=== PATIENT | male | born 1970 | race Caucasian/White ===

== ENCOUNTER → 2018-07-13 | Outpatient (CLI) | payer BC ==
--- NOTE | 2018-07-13 09:27 | XR ---
EXAMINATION TYPE: XR elbow limited RT DATE OF EXAM: 07/13/2018 CLINICAL HISTORY: pain TECHNIQUE: Frontal, lateral images of the right elbow are obtained. COMPARISON: None. FINDINGS: There is no acute fracture/dislocation evident of the elbow. Severe degenerative joint spa ce narrowing with spur formation. The overlying soft tissue appears unremarkable. IMPRESSION: There is no acute fracture or dislocation of the elbow. ICD 10 NO FRACTURE, INITIAL EVALUATION
== END ==
LOC: RADXRMAIN 09:09
PROVIDERS: ATTEND Orthopaedic Surgery
DX: M25.521 Pain in right elbow (principal)

== ENCOUNTER → 2018-08-18 | Outpatient (CLI) | payer OTHER ==
--- NOTE | 2018-08-19 15:13 | MR ---
EXAMINATION TYPE: MR elbow RT wo con DATE OF EXAM: 08/18/2018 COMPARISON: Radiographs of the right elbow dated 07/13/2018 HISTORY: Pain in right elbow / Loose body in elbow TECHNIQUE: Multiplanar, multisequence images of the right elbow were acquired without contrast. FINDINGS: As seen on the radiographs of the right elbow dated 07/13/2018 there is severe arthropathy o f the right elbow with protuberant osteophytes projecting from the distal humerus, proximal radial he ad, and proximal ulna. There is no evidence of bone marrow edema. Subchondral cysts are seen of the h umeral condyles and radial head and to a lesser degree of the coronoid process and dorsal ulna. There is a small joint effusion of the right elbow. There is high signal at both the lateral and medial epicondyles at the insertion of the common extens or and flexor tendons. The ulnar collateral ligament has a central perforation, possibly degenerative partial tear. The radial collateral ligament also demonstrates a small proximal perforation and high signal proximally. The biceps insertional tendon fibers are unremarkable. The ulnar nerve is unremar kable. IMPRESSION: 1. Extensive right elbow arthropathy with large protuberant osteophytes and [id number] articulation of the joint spaces with subchondral cyst formation and small associated joint effusion. 2. Partial tears of both the ulnar collateral ligament and radial collateral ligament. 3. Findings suggesting both lateral and medial epicondylitis, mild in degree.
== END | disposition home or self-care (01) ==
LOC: RADMRIMAIN 12:22
PROVIDERS: ATTEND Orthopaedic Surgery
DX: S53.441A Ulnar collateral ligament sprain of right elbow, initial encounter (principal); S53.431A Radial collateral ligament sprain of right elbow, initial encounter; M19.021 Primary osteoarthritis, right elbow; M25.821 Other specified joint disorders, right elbow

== ENCOUNTER → 2020-08-13 | Outpatient (CLI) | payer BC ==
--- NOTE | 2020-08-13 17:18 | MR ---
EXAMINATION TYPE: MR knee LT wo con DATE OF EXAM: 08/13/2020 COMPARISON: Outside radiograph 07/16/2020 HISTORY: 50-year-old male M25.562, left knee pain. TECHNIQUE: Multiplanar, multisequence imaging of the left knee is performed without IV contrast. FINDINGS: ACL and PCL are intact. Mild edematous change on either side of the intact MCL fibers. Heterogeneity and thickening of the proximal LCL proper. There is some fluid along the popliteus tend on sheath along with a 7 mm loose body but the LCL complex is otherwise intact There is an oblique tear involving the posterior horn of the medial meniscus. A large through thickne ss radial tear involves the body of the medial meniscus. The meniscus is extruded. Severe degenerative change with full-thickness cartilage loss along the weightbearing and peripheral aspect of the medial compartment. Marginal spurring and degenerative subchondral signal changes are p resent. Lateral meniscus is intact. Overall lateral compartment articular cartilage volume is maintained. Severe moderate to full thickness cartilage loss along the medial patellar facet with underlying dege nerative subchondral signal changes and marginal spurring. Extensor mechanism is intact. There is a moderate knee joint effusion. A complex small leaking Barahona's cyst present measuring 2.6 cm craniocaudal by 1.8 cm AP by 8 mm wide. Mild anterior subcutaneous soft tissue swelling. Normal popliteal artery anatomy in muscle bulk. No suspicious bone marrow placement. IMPRESSION: 1. Severe medial compartmental osteoarthrosis with a torn and extruded medial meniscus. The tear incl udes a large through thickness component of the meniscal body. 2. Severe degenerative change with moderate to full thickness cartilage loss along the medial patella r facet. 3. Grade 1 MCL sprain. Additional grade 1 sprain of the LCL proper. 4. Moderate joint effusion. Fluid extends within the popliteus tendon sheath along with a 7 mm loose body. 5. Small 2.6 cm leaking Barahona's cyst
== END | disposition home or self-care (01) ==
LOC: RADMRIMAIN 13:14
PROVIDERS: ATTEND Orthopaedic Surgery
DX: S83.242A Other tear of medial meniscus, current injury, left knee, initial encounter (principal); S83.412A Sprain of medial collateral ligament of left knee, initial encounter; S83.422A Sprain of lateral collateral ligament of left knee, initial encounter; M17.12 Unilateral primary osteoarthritis, left knee

== ENCOUNTER → 2020-09-06 | Outpatient (CLI) | payer BC ==
[2020-09-06 14:16] LABS: Basophils # (A) 0.1 k/uL (0-0.2); Basophils % (A) 1 %; Eosinophils # (A) 0.3 k/uL (0-0.7); Eosinophils % (A) 5 %; HCT 48.8 % (39.0-53.0); HGB 16.2 gm/dL (13.0-17.5); Lymphocytes # (A) 1.6 k/uL (1.0-4.8); Lymphocytes % (A) 33 %; MCH 30.7 pg (25.0-35.0); MCHC 33.2 g/dL (31.0-37.0); MCV 92.4 fL (80.0-100.0); Mean Platelet Volume 7.2; Monocytes # (A) 0.4 k/uL (0-1.0); Monocytes % (A) 8 %; Neutrophils # (A) 2.5 k/uL (1.3-7.7); Neutrophils % (A) 51 %; Platelet Count 202 k/uL (150-450); RBC 5.28 m/uL (4.30-5.90); RDW 12.6 % (11.5-15.5); WBC 4.9 k/uL (3.8-10.6)
[2020-09-06 14:29] LABS: Potassium 4.8 mmol/L (3.5-5.1)
== END | disposition home or self-care (01) ==
LOC: LABPAT 11:48
PROVIDERS: ATTEND Orthopaedic Surgery
DX: M23.92 Unspecified internal derangement of left knee (principal)
CPT/HCPCS: 80051; 85025; 93005

== ENCOUNTER 2020-09-09 10:39 | Day surgery (SDC) | payer BC ==
[2020-09-05 09:54] VITALS: BMI 37.5
--- NOTE | 2020-09-08 16:51 | HP ---
HISTORY AND PHYSICAL REASON FOR ADMISSION: Surgery 09/09/2020 HISTORY OF PRESENT ILLNESS: Howard Martínez is a 50-year-old gentleman seen with progressive left knee pain. We discussed options for treatment. He elected to proceed with left knee arthroscopy. Consent was obtained. PAST MEDICAL HISTORY: Hypertension, asthma. PAST SURGICAL HISTORY: Right hand/forearm surgery. MEDICATIONS: Cozaar. ALLERGIES: None. SOCIAL HISTORY: Denies current tobacco use. PHYSICAL EXAMINATION: Evaluation of the left knee: His range of motion is 0-120 degrees. He has a mild effusion present. Tender along the medial joint line with positive medial Rio's. Ligaments are stable. Hip rotation is without pain. His distal neurovascular exam is intact. RADIOGRAPHS: Revealed osteoarthritic changes. MRI left knee revealed meniscal tear, osteoarthritis and intra-articular effusion. IMPRESSION: 1. Internal derangement left knee with medial meniscal tear. 2. Left knee osteoarthritis. 3. Hypertension. 4. Asthma. PLAN: Arthroscopy left knee with partial meniscectomy and debridement. Surgery scheduled for 09/09/2020. MMODL / IJN: [id number] /
[2020-09-09] MEDS ORDERED: ONDANSETRON 4 MG/2 ML VIAL IVP ONE (10:54)
[2020-09-09] MEDS ORDERED: MIDAZOLAM 2 MG/2 ML VIAL IV PRN (10:54)
[2020-09-09] MEDS ORDERED: LACTATED RINGERS 1,000 ML IV SCH (10:54)
[2020-09-09] MEDS ORDERED: fentaNYL (PF) 50 MCG/ML 2 ML AMP IVP PRN (10:54)
[2020-09-09] MEDS ORDERED: DEXAMETHASONE SOD PHOSPHATE 4 MG/ML 1 ML VIAL IV ONE (10:54)
[2020-09-09] MEDS ORDERED: LIDOCAINE 1% (10MG/ML) FOR IV START INTRADERMA PRN (10:54)
[2020-09-09 11:02] VITALS: RESP 16
[2020-09-09] MEDS ORDERED: HYDROmorphone (PF) 1 MG/ML ONE (11:15)
[2020-09-09] MEDS ORDERED: PROPOFOL 10 MG/ML 20 ML VIAL IV ONE (11:15)
[2020-09-09] MEDS ORDERED: MIDAZOLAM 2 MG/2 ML VIAL ONE (11:15)
[2020-09-09] MEDS ORDERED: fentaNYL (PF) 50 MCG/ML 2 ML AMP ONE (11:15)
[2020-09-09] MEDS ORDERED: LIDOCAINE 1% INJ 10MG/ML (20 ML MDV) ONE (11:15)
[2020-09-09] MEDS ORDERED: KETOROLAC 15 MG/ML 1 ML VIAL ONE (11:15)
[2020-09-09] MEDS ORDERED: BUPIVACAINE (PF) 0.25% 30 ML VIAL INTRAARTIC ONE (11:38)
[2020-09-09 12:25] VITALS: TEMP 97
--- NOTE | 2020-09-09 12:30 | P.OP ---
Date of Procedure: 09/09/20 Preoperative Diagnosis: Internal derangement left knee Postoperative Diagnosis: 1. Tear medial meniscus left knee 2. Grade 4 chondromalacia medial femoral condyle left knee 3. Reactive synovitis medial, lateral and suprapatellar compartments left knee Procedure(s) Performed: 1. Arthroscopic partial medial meniscectomy left knee 2. Arthroscopic chondroplasty medial femoral condyle left knee 3. Arthroscopic microfracture medial femoral condyle left knee 4. Arthroscopic partial synovectomy medial, lateral and suprapatellar compartments left knee Anesthesia: LAM, local Surgeon: Keith Garay Estimated Blood Loss (ml): 10 Pathology: none sent Condition: stable Disposition: PACU Indications for Procedure: 50-year-old patient seen with progressive left knee pain. After treatment options were discussed with him, he elected to proceed with arthroscopy. Operative Findings: See description of procedure Description of Procedure: Patient was taken to the operative suite. Patient underwent a general anesthetic by the department of anesthesia. Patient was given preoperative antibiotics. The left lower extremity was placed in a well-padded arthroscopic leg thompson. The left leg was prepped and draped in the normal sterile orthopedic fashion. A lateral parapatellar and suprapatellar incision was made. Trochars were inserted. Arthroscopy was initiated. Suprapatellar pouch revealed diffuse thick reactive synovitis. The patellofemoral joint appeared to articulate congruently. There with grade 1 chondromalacia of the patella and grade 2 chondromalacia of the femoral sulcus. The scope was guided into the medial gutter. No loose bodies or plica were identified. The scope was then guided into the medial compartment. A medial parapatellar incision was made. Trocar inserted followed by probe. There was a complex tear of the medial meniscus involving the posterior horn and midbody. There were grade 4 chondromalacia changes medial femoral condyle and tibial plateau with large areas of exposed bone. There was thick reactive synovitis anteriorly. I performed a partial medial meniscectomy getting down to stable meniscal tissue. I performed a chondroplasty of the medial femoral condyle and the periphery as well as performing a partial synovectomy decompressing reactive synovitis anteriorly. Residual meniscus was probed and found to be stable. There was good decompression of the synovitis. I again noted those areas of grade 4 chondromalacia. I performed a microfracture to medial femoral condyle penetrating the bone with resultant bleeding at the microfracture site. Scope and probe were then guided into the intercondylar notch. Cruciates were identified, probed and found to be stable. The scope and probe were then guided into lateral compartment. Meniscal meniscus was probed and found be stable. There were some grade 1 chondromalacia changes lateral compartment. There was thick reactive synovitis anteriorly. I performed a partial synovectomy decompressing reactive synovitis. I removed the shaver. There was good decompression of the synovitis. The scope was in guided back into the suprapatellar compartment. I introduced a motorized shaver into the suprapat ellar compartment. I debrided some piecemeal fragments of meniscus I encountered. I performed a partial synovectomy decompressing thick reactive synovitis. Shaver was removed. There was good decompression of synovitis. I now took one more look on the entire knee, no residual debris. Instruments were now removed from the joint. The joint was infiltrated with .25% Marcaine. Steri-Strips were applied to the portal sites. Sterile dressings were applied. The patient was placed into a NICHOLAS hose. No tourniquet was utilized. The patient was awakened, transferred to a bed and taken to recovery stable satisfactory condition.
[2020-09-09] MEDS: HYDROmorphone 0.5 MG/0.5 ML SYRINGE IVP PRN ×2 (12:41→12:51)
[2020-09-09] MEDS ORDERED: LACTATED RINGERS 1,000 ML IV ONE (12:43)
[2020-09-09] MEDS ORDERED: HYDROcodone/APAP 5-325MG 1 EACH TAB PO ONE (13:24)
[2020-09-09 13:25] VITALS: BP 137/87; PULSE 67
[2020-09-09] MEDS ORDERED: HYDROcodone/APAP 5-325MG 1 EACH TAB ONE (13:26)
== END 2020-09-09 14:26 | disposition home or self-care (01) ==
LOC: OR 10:39
PROVIDERS: ATTEND Orthopaedic Surgery
DX: M23.222 Derangement of posterior horn of medial meniscus due to old tear or injury, left knee (principal); M94.262 Chondromalacia, left knee; M17.12 Unilateral primary osteoarthritis, left knee; M65.862 Other synovitis and tenosynovitis, left lower leg; I10 Essential (primary) hypertension; J45.909 Unspecified asthma, uncomplicated; G47.33 Obstructive sleep apnea (adult) (pediatric); Z79.899 Other long term (current) drug therapy
CPT/HCPCS: 29881; 29879; J2250; J1100; J0690; J2405; J2001; J3010; J1170 ×2; J1885; J2704

== ENCOUNTER → 2023-12-15 | Outpatient (CLI) | payer BC ==
[2023-12-15 16:15] LABS: Basophils # (A) 0.05 X 10*3/uL (0.00-0.10); Basophils % (A) 0.9 %; Eosinophils # (A) 0.38 X 10*3/uL (0.04-0.35); Eosinophils % (A) 6.8 %; HCT 40.6 % (39.6-50.0); HGB 12.9 g/dL (13.0-17.0); Lymphocytes # (A) 1.48 X 10*3/uL (0.90-5.00); Lymphocytes % (A) 26.5 %; MCH 31.2 pg (27.0-32.0); MCHC 31.8 g/dL (32.0-37.0); MCV 98.1 FL (80.0-97.0); Mean Platelet Volume 9.9 FL (9.5-12.2); Monocytes # (A) 0.38 X 10*3/uL (0.20-1.00); Monocytes % (A) 6.8 %; NRBC Per 100 WBC 0 X 10*3/uL (0.00-0.01); Neutrophils # (A) 3.28 X 10*3/uL (1.80-7.70); Neutrophils % (A) 58.6 %; Platelet Count 293 X 10*3/uL (140-440); RBC 4.14 X 10*6/uL (4.40-5.60); RDW 12.6 % (11.5-14.5); WBC 5.59 X 10*3/uL (4.50-10.00)
[2023-12-15 16:31] LABS: BUN/Creat Ratio 17.89 Ratio (12.00-20.00); Blood Urea Nitrogen 16.1 mg/dL (9.0-27.0); Calcium 9.2 mg/dL (8.7-10.3); Carbon Dioxide 21.9 mmol/L (21.6-31.8); Chloride 101 mmol/L (96-109); Glucose 108 mg/dL (70-110); Potassium 4.6 mmol/L (3.5-5.5); Sodium 135 mmol/L (135-145)
== END | disposition home or self-care (01) ==
LOC: LABPAT 10:33
PROVIDERS: ATTEND Orthopaedic Surgery
DX: Z01.812 Encounter for preprocedural laboratory examination (principal); Z22.322 Carrier or suspected carrier of Methicillin resistant Staphylococcus aureus; M17.12 Unilateral primary osteoarthritis, left knee
CPT/HCPCS: 80048; 85025; 87070

== ENCOUNTER 2024-01-06 09:46 | Day surgery (SDC) | payer BC ==
--- NOTE | 2024-01-05 21:00 | HP ---
HISTORY AND PHYSICAL DATE OF SURGERY: 01/06/2024. HISTORY OF PRESENT ILLNESS: Howard Martínze is a 53-year-old gentleman seen with symptomatic left knee osteoarthritis. Options for treatment were discussed with him. He elected to proceed with left total knee arthroplasty. Consent regarding the procedure was obtained. Cardiac clearance was provided. Primary care physician is Dr. Noe. PAST MEDICAL HISTORY: Cardiovascular disease, hypertension, hyperlipidemia. PAST SURGICAL HISTORY: Cardiac surgery, hand surgery. DAILY MEDICATIONS: 1. Coreg. 2. Cozaar. 3. Crestor. 4. Lasix. 5. Plavix. 6. Tylenol. ALLERGIES: None. SOCIAL HISTORY: Denies tobacco use. PHYSICAL EVALUATION OF THE LEFT KNEE: His range of motion is negative 2 to 125 degrees. He has some mild effusion. Tenderness, medial joint line. Crepitance along the medial patellofemoral compartments with range of motion. Pain with patellofemoral compression. Ligaments stable. Hip rotation without pain. Distal neurovascular exam is intact. IMAGING STUDIES: Radiographs of the left knee reveal severe osteoarthritic changes. IMPRESSION: 1. Left knee osteoarthritis. 2. Hypertension. 3. Hyperlipidemia. 4. Cardiovascular disease. PLAN: Left total knee arthroplasty. MMODL / IJN: [id number] /
[~2024-01-06 09:46] MED LIST: HYDROmorphone 0.5 MG/0.5 ML SYRINGE IVP PRN; LIDOCAINE 1% (10MG/ML) FOR IV START INTRADERMA PRN; TRANEXAMIC 1,000 MG/100ML-NACL 1,000 MG in SALINE 1 100ML.BAG IVPB PRN; fentaNYL (PF) 50 MCG/ML 2 ML AMP IVP PRN
[2024-01-06] MEDS: ACETAMINOPHEN TAB 500 MG TAB PO PRN (10:23)
[2024-01-06] MEDS: LACTATED RINGERS 1,000 ML IV SCH ×2 (10:23→14:59)
[2024-01-06] MEDS: ONDANSETRON 4 MG/2 ML VIAL IVP ONE (10:24)
[2024-01-06] MEDS: DEXAMETHASONE SOD PHOSPHATE 4 MG/ML 1 ML VIAL IV ONE (10:24)
[2024-01-06] MEDS: MELOXICAM 7.5 MG TAB PO PRN (10:24)
[2024-01-06] MEDS: IV FLUID CONTINUATION 1,000 ML IV ONE (10:26)
[2024-01-06] MEDS: MIDAZOLAM 2 MG/2 ML VIAL IV PRN (10:28)
[2024-01-06 10:51] LABS: INR 0.9 (<1.2); Prothrombin Time 10.5 sec (10.0-12.5)
--- NOTE | 2024-01-06 11:14 | P.ANPRN ---
Procedure Note - Anesthesia - Nerve Block Performed Left iPack Single Time Out Performed: Yes Date of Procedure: 01/06/24 Procedure Start Time: 10:28 Procedure Stop Time: 10:33 Location of Patient: PreOp Indication: Acute Post-Operative Pain, Analgesia, Requested by Surgeon Sedation Type: Sedate with meaningful contact maintained Preparation: Sterile Prep Position: Right Lateral Needle Types: Pajunk Needle Gauge: 21 Ultrasound used to visualize needle placement: Yes Ultrasound used to observe medication spread: Yes Injectate: 0.5% Ropivacaine (see comment for volume) (Ropiv 20ml+[id number]) Blood Aspirated: No Pain Paresthesia on Injection Noted: No Resistance on Injection: Normal Image Stored and Saved: Yes Events: Uneventful and Well Tolerated
--- NOTE | 2024-01-06 11:17 | P.ANPRN ---
Procedure Note - Anesthesia - Nerve Block Performed Left Adductor Canal Infusion Time Out Performed: Yes Date of Procedure: 01/06/24 Procedure Start Time: 10:34 Procedure Stop Time: 10:39 Location of Patient: PreOp Indication: Acute Post-Operative Pain, Analgesia, Requested by Surgeon Sedation Type: Sedate with meaningful contact maintained Preparation: Sterile Prep Position: Supine Catheter: Indwelling Needle Types: On-Q Ultrasound used to visualize needle placement: Yes Ultrasound used to observe medication spread: Yes Injectate: 0.5% Ropivacaine (see comment for volume) (Ropiv 15ml+[id number]) Blood Aspirated: No Pain Paresthesia on Injection Noted: No Resistance on Injection: Normal Image Stored and Saved: Yes Events: Uneventful and Well Tolerated
[2024-01-06] MEDS ORDERED: DEXAMETHASONE SOD PHOSPHATE 4 MG/ML 1 ML VIAL ONE (11:39)
[2024-01-06] MEDS ORDERED: fentaNYL (PF) 50 MCG/ML 2 ML AMP ONE (11:39)
[2024-01-06] MEDS ORDERED: ePHEDrine 50 MG/ML 1 ML VIAL ONE (11:39)
[2024-01-06] MEDS ORDERED: PHENYLEPHRINE-0.9% NACL SYG 1,000 MCG/10 ML SYRINGE ONE (11:39)
[2024-01-06] MEDS ORDERED: ROPIVACAINE 5 MG/ML 30 ML VIAL ONE (11:39)
[2024-01-06] MEDS ORDERED: PROPOFOL 10 MG/ML 20 ML VIAL IV ONE (11:39)
[2024-01-06] MEDS ORDERED: MIDAZOLAM 2 MG/2 ML VIAL ONE (11:39)
[2024-01-06] MEDS ORDERED: SODIUM CHLORIDE 0.9% (PF) 10 ML VIAL ONE (11:39)
[2024-01-06] MEDS ORDERED: TRANEXAMIC 1,000 MG/100ML-NACL PREMIX BAG ONE (11:39)
[2024-01-06] MEDS: ceFAZolin 1,000 MG in SODIUM CHLORIDE 0.9% 1,000 ML IRRIGATION ONE (11:44)
[2024-01-06] MEDS: LACTATED RINGERS 1,000 ML IV ONE (13:14)
[2024-01-06] MEDS ORDERED: HYDROcodone/APAP 5-325MG 1 EACH TAB PO PRN (13:37)
[2024-01-06] MEDS ORDERED: ONDANSETRON 4 MG/2 ML VIAL IVP PRN (13:37)
[2024-01-06] MEDS ORDERED: NALOXONE 0.4 MG/ML 1 ML VIAL IV PRN (13:37)
[2024-01-06] MEDS ORDERED: HYDROmorphone 0.5 MG/0.5 ML SYRINGE IVP PRN ×2 (13:37)
--- NOTE | 2024-01-06 13:37 | P.OP ---
Date of Procedure: 01/06/24 Preoperative Diagnosis: Left knee osteoarthritis Postoperative Diagnosis: Left knee osteoarthritis Procedure(s) Performed: Left total knee arthroplasty Implants: 1. DePuy attune size 6 left cruciate retaining cemented femur 2. DePuy attune size 7 fixed-bearing cemented tibial baseplate 3. DePuy attune size 6 fixed-bearing cruciate retaining 10 mm polyethylene tibial insert 4. DePuy attune 38 mm all polyethylene cemented patella Anesthesia: regional (Adductor canal catheter, iPAQ block), spinal Surgeon: Keith Garay Clinical Laboratory Technician #1: Joselo Tan Estimated Blood Loss (ml): 40 Pathology: none sent Condition: stable Disposition: PACU Indications for Procedure: 53-year-old patient who was seen with symptomatic left knee osteoarthritis. After having treatment options discussed, he elected to proceed with left total knee arthroplasty. Operative Findings: See description of procedure Description of Procedure: Patient was taken to the operative suite after having an adductor canal catheter placed by the department of anesthesia. Patient underwent a spinal anesthetic by the department of anesthesia. Patient was given preoperative IV intake antibiotics and TXA. A well-padded tourniquet was placed about the left lower extremity. The lower extremity was then prepped and draped in the normal sterile orthopedic fashion. The extremity was elevated, a tourniquet was insufflated to 300. A standard anterior incision was made sharply through skin. Dissection was taken down through the subcutaneous soft tissues down to the extensor mechanism. A medial arthrotomy was performed, patella was everted and knee was flexed. There was advanced osteoarthritis noted. I introduced my distal intramedullary femoral drill. I then introduced the distal femoral cutti ng jig. Joselo ANDINO secured the cutting jig with 2 pins. I held retractors in position while Joselo ANDINO performed the distal femoral resection through the guide area we now removed her distal femoral cutting guide. We now placed our 4-in-1 femoral cutting block and positioned and it was secured with 2 pins by Joselo ANDINO while I held the block in position. The distal femoral finishing was now completed. A proximal tibial cutting guide was positioned. I held the guide in the appropriate position with both hands while Joselo ANDINO inserted stabilizing pins into the guide. Proximal tibial cut was made. We now placed a trial femoral component into position, along with an appropriate size tibial tray and insert. We now took the knee through range of motion and had full extension good flexion and good overall soft tissue balance noted. The patella was everted and stabilized with 2 towel clips held by Joselo ANDINO while I performed a flush with patellar quad tendon utilizing a fresh sawblade. We templated the patella, appropriate drill holes were made. An appropriate trial patella was positioned, knee was taken through full range of motion with the patella tracking very nicely. The trial patella was removed. Drill holes were made through the femoral component. All trial components were removed after marking off the appropriate rotation of the tibia. Retractors were now positioned along the proximal tibia. An appropriate keel punch was made with the appropriate size tibial guide by myself on Joselo ANDINO assisted by holding retractors. At this point appropriate size implants were chosen and opened. The joint was irrigated copiously with pulse lavage mechanical irrigation. The wound was irrigated with pulse lavage mechanical irrigation. We mixed antibiotic methylmethacrylate. We placed the knee into flexion. We placed multiple retractors assisted by Joselo ANDINO to expose the proximal tibia. Once the methyl methacrylate was ready, the tibial component was cemented into place removing any excess methylmethacrylate form by both myself and Joselo ANDINO. The femoral component was cemented into place removing the removing any excess methylmethacrylate performed by both myself and Joselo ANDINO. We then inserted the appropriate size polyethylene tibial insert. We made sure that it was locked into position. We took the knee into full extension, and then back in a flexion making sure we had removed any excess methylmethacrylate. The patellar component was then cemented down and secured with clamp. Excess methylmethacrylate removed. We kept the knee in full extension, patellar clamp in position until methylmethacrylate had hardened. Once it had hardened the patellar clamp was removed. The knee was taken through full range of motion. The patella tracked nicely. There was good soft tissue balancing. The tourniquet was now released. Additional hemostasis was achieved via electrocautery. A second gram of TXA was given. The wound again was irrigated with pulse lavage mechanical irrigation. The extensor mechanism was repaired with Vicryl. We checked the repair with range of motion and it was stable. The subcutaneous soft tissues were repaired with Vicryl in layers. The skin was approximated with pernio/Dermabond. Sterile dressings were applied followed by loose web roll and Thad bandage. The patient was transferred to a bed, and taken to recovery in stable and satisfactory condition. Joselo ANDINO assisted with this complex procedure.
[2024-01-06] MEDS: ROPIVACAINE 1,100 MG, SODIUM CHLORIDE 0.9% 500 ML 330 ML, EMPTY PAIN BALL 1 EACH MISCELLANE PRN (14:22)
--- NOTE | 2024-01-06 15:15 | XR ---
EXAMINATION TYPE: XR knee limited LT DATE OF EXAM: 01/06/2024 COMPARISON: NONE HISTORY: 53-year-old male evaluation for postoperative abnormality and alignment TECHNIQUE: 2 views FINDINGS: Images show placement of left total knee arthroplasty. Both distal femoral and proximal tib ial components of the prosthesis are well seated without periprosthetic fracture. Alignment grossly a natomic. Anterior soft tissue swelling with scattered soft tissue air as well as intra-articular air related to recent operation. Surgical clips medial aspect of the knee related to a prior surgery. IMPRESSION: Uncomplicated postoperative appearance left total knee arthroplasty.
[2024-01-06] MEDS: DEXTROAMPHETAMINE SULFATE 10 MG PO SCH (15:53)
[2024-01-06] MEDS: HYDROmorphone 1 MG/ML 1 ML SYRINGE IVP PRN (17:59)
--- NOTE | 2024-01-06 22:13 | CONS ---
CONSULTATION REASON FOR CONSULTATION: Advice regarding asthma and other medical issues, requested by Orthopedics. HISTORY OF PRESENT ILLNESS: This is a 53-year-old gentleman with a past medical history of asthma, CHF, was admitted after left total knee arthroplasty by Dr. Garay. There is no history of any fever or rigors. No history of headache, loss of consciousness, or seizures. PAST MEDICAL HISTORY: Reviewed include asthma, CHF. The rest of the history and rest of the chart is also reviewed. HOME MEDICATIONS: Coreg. Dose and rest of medications reviewed. ALLERGIES: Cipro. FAMILY HISTORY: History of cancer. SOCIAL HISTORY: Previous history of smoking. REVIEW OF SYSTEMS: Fourteen-point review of systems negative except as mentioned earlier. PHYSICAL EXAMINATION: VITAL SIGNS: Pulse 76, blood pressure 104/59, respirations 16. HEENT: Conjunctivae normal. NECK: No jugular venous distention. CARDIOVASCULAR: S1, S2. RESPIRATIONS: Clear to auscultation. ABDOMEN: Soft, nontender. LEGS: Status post surgery. LABORATORY DATA: INR 0.9. ASSESSMENT: 1. Status post left total knee arthroplasty. 2. History of asthma. 3. History of congestive heart failure. 4. Hypertension. 5. Hyperlipidemia. 6. History of sleep apnea. 7. History of coronary artery disease, coronary artery bypass graft. RECOMMENDATIONS AND DISCUSSION: This is a 53-year-old gentleman, who presented with multiple medical problems. We will monitor the patient closely. Continue the current medications, continue symptomatic treatment. Recommend DVT prophylaxis. I would also recommend resume the home medications. We will closely monitor. The patient may be asked to follow up with primary physician closely after discharge. ALYSSA / RELL: [id number] /
[2024-01-06] MEDS: ATORVASTATIN 40 MG TAB PO SCH (22:30)
[2024-01-06] MEDS: carvediloL 3.125 MG TAB PO SCH (22:30)
[2024-01-06] MEDS: SENNOSIDES-DOCUSATE SODIUM 1 EACH TAB PO SCH (22:30)
[2024-01-06] MEDS: HYDROcodone/APAP 7.5-325MG 1 EACH TAB PO PRN (22:30)
[2024-01-07] MEDS: ENOXAPARIN 30 MG/0.3 ML SYRINGE SQ SCH (05:48)
[2024-01-07] MEDS: POTASSIUM CHLORIDE ER 10 MEQ TAB.ER.PRT PO SCH (08:38)
[2024-01-07] MEDS: CLOPIDOGREL 75 MG TAB PO SCH (08:38)
[2024-01-07] MEDS: LOSARTAN 50 MG TAB PO SCH (08:38)
[2024-01-07] MEDS: FUROSEMIDE 40 MG TAB PO SCH (08:38)
[2024-01-07 08:50] VITALS: BP 144/77; PULSE 82; RESP 19; TEMP 97.5
[2024-01-07 09:04] LABS: Basophils # (A) 0.01 X 10*3/uL (0.00-0.10); Basophils % (A) 0.1 %; Eosinophils # (A) 0 X 10*3/uL (0.04-0.35); Eosinophils % (A) 0 %; HCT 38.3 % (39.6-50.0); HGB 12.3 g/dL (13.0-17.0); Lymphocytes # (A) 1.02 X 10*3/uL (0.90-5.00); Lymphocytes % (A) 11.8 %; MCH 29.5 pg (27.0-32.0); MCHC 32.1 g/dL (32.0-37.0); MCV 91.8 FL (80.0-97.0); Monocytes # (A) 0.52 X 10*3/uL (0.20-1.00); NRBC Per 100 WBC 0 X 10*3/uL (0.00-0.01); Neutrophils # (A) 7.07 X 10*3/uL (1.80-7.70); Neutrophils % (A) 81.8 %; Platelet Count 264 X 10*3/uL (140-440); RBC 4.17 X 10*6/uL (4.40-5.60); RDW 12.2 % (11.5-14.5); WBC 8.65 X 10*3/uL (4.50-10.00)
--- NOTE | 2024-01-07 10:17 | P.DS ---
Providers Date of admission: 01/06/2024 Expected date of discharge: 01/07/24 Attending physician: Keith Garay Consults: 01/06/24 13:37 Consult Physician Routine Consulting Provider: Rocio Owens Consult Reason/Comments: Medical management Do you want consulting provider notified?: Yes Primary care physician: Danilo Noe [facility] Course: Date of admission: 01/06/2024 Date of discharge: 01/07/2024 Admission diagnosis: Left knee osteoarthritis Discharge diagnosis: Same Attending physician: Dr. Garay Surgical procedures: Left total knee arthroplasty Brief history: Patient is a 53-year-old male with a history of progressive primary left knee osteoarthritis. At this point patient has failed conservative treatment measures and has opted to proceed with a elective left total knee arthroplasty. Hospital course: Details of patient's surgery can be found in operative report. Patient tolerated the procedure well and was subsequently transported to orthopedic floor. Patient's orthopeidc and medical care was provided daily. Patient had daily laboratory tests performed for evaluation of overall blood counts. Patient had daily physical therapy to include strengthening range of motion as well as education with walker ambulation. Patient was treated with Plavix and Lovenox for their postoperative DVT prophylaxis during their inpatient stay. Patient was noted to have a relatively uneventful postoperative course. Patient reported satisfactory pain control with oral pain medications by postoperative day 1. Patient showed satisfactory progress with physical therapy. Patient moved steadily through the program and had no difficulty meeting the goals by postoperative day 1. Given patient's otherwise satisfactory course and having met physical therapy goals, plan is to discharge patient home with health services on postoperative day 1. Discharge condition/disposition: Patient will be discharged home with health services in stable condition. Discharge medications: Instructions are given on resumption of patient's normal daily medications per primary care recommendation, in addition patient will be prescribed [place]; senna; resume Plavix once home. Discharge instructions: 1. Wound care and infection precautions, keep incision dry and covered while showering, no lotions, creams, moisturizers. No soaking, tubs, pools, hottubs. Do not scrub over the incision. 2. Weight-bear as tolerated with walker / cane until follow-up. 3. Ice and elevate when necessary. Do not exceed 20 minutes per hour with ice pack. 4. Utilize compression sleeve until seen at first follow up appointment. 5. Visiting nursing care. 6. Home physical therapy including home CPM. 7. Pain meds and anticoagulants per prescription. 8. Pain medication has potential to cause constipation. Increase oral fluid and fiber intake. Contact primary care provider if you have not had a bowel movement within 48 hours after discharge 9. No anti-inflammatory medication until discussed at first post operative visit, this including Motrin, Aleve, Mobic, Diclofenac.. 10. Follow up in office at 2 weeks postop with Kulwant Pinedo PA-C / Joselo Tan PA-C 11. Follow up with your primary care doctor 7-10 days after discharge. 12. Contact [facility] with any questions, . Assessment: Left knee osteoarthritis Procedures: Left total knee arthroplasty Patient Condition at Discharge: Good Plan - Discharge Summary Discharge Rx Participant: Yes New Discharge Prescriptions: New HYDROcodone/APAP 7.5-325MG [[place] 7.5-325] 1 - 2 tab PO Q6HR PRN #36 tab PRN Reason: Pain Sennosides/Docusate Sodium [Senna Plus 8.6-50 mg Softgel] 1 each PO DAILY #20 capsule Continue Clopidogrel [Plavix] 75 mg PO DAILY Aspirin 81 mg PO DAILY No Action Losartan Potassium [Cozaar] 50 mg PO DAILY Dextroamphetamine Sulfate [Dexedrine] 10 mg PO TID Furosemide [Lasix] 40 mg PO DAILY Rosuvastatin [Crestor] 20 mg PO HS Potassium Chloride [Klor-Con M10] 10 meq PO DAILY carvediloL [Coreg] 3.125 mg PO BID Discharge Medication List Dextroamphetamine Sulfate [Dexedrine] 10 mg PO TID 09/05/20 [History] Losartan Potassium [Cozaar] 50 mg PO DAILY 09/05/20 [History] Aspirin 81 mg PO DAILY 01/04/24 [History] Clopidogrel [Plavix] 75 mg PO DAILY 01/04/24 [History] Furosemide [Lasix] 40 mg PO DAILY 01/04/24 [History] Potassium Chloride [Klor-Con M10] 10 meq PO DAILY 01/04/24 [History] Rosuvastatin [Crestor] 20 mg PO HS 01/04/24 [History] carvediloL [Coreg] 3.125 mg PO BID 01/04/24 [History] HYDROcodone/APAP 7.5-325MG [[place] 7.5-325] 1 - 2 tab PO Q6HR PRN #36 tab 01/07/24 [Rx] Sennosides/Docusate Sodium [Senna Plus 8.6-50 mg Softgel] 1 each PO DAILY #20 capsule 01/07/24 [Rx] Follow up Appointment(s)/Referral(s): Bryan Pinedo PAC [PHYSICIAN CUPROUS CHLORIDE HELPER] - 01/21/24 9:40 am (With Jarrod) [facility] Visiting Nurse, [NON-STAFF] - As Needed Patient Instructions/Handouts: Knee Replacement (DC), Knee Replacement (GEN) Activity/Diet/Wound Care/Special Instructions: Orthopedic Discharge Instructions: 1. Wound care and infection precautions, keep incision dry and covered while showering, no lotions, creams, moisturizers. No soaking, pools, hot tubs. Do not scrub over incision. 2. Weight-bear as tolerated with walker / cane until follow-up. 3. Ice and elevate when necessary. Do not exceed 20 minutes per hour with ice pack. 4. Utilize compression sleeve until seen at first follow up appointment. 5. Pain meds and anticoagulants per prescription. 6. Pain medication has potential to cause constipation. Increase oral fluid and fiber intake. Contact primary care provider if you have not had a bowel movement within 48 hours after discharge. 7. No anti-inflammatory medication until discussed at first post operative visit, this including Motrin, Aleve, Mobic, Diclofenac. 8. Follow up in office at 2 weeks postop with Kulwant Pinedo PA-C / Joselo Tan PA-C 9. Follow up with your primary care doctor 7-10 days after discharge. 10. Contact [facility] with any questions, . Keep incision clean, dry, intact. While showering, cover incision with Saran wrap. Discharge Disposition: HOME WITH HOME HEALTH SERVICES
--- NOTE | 2024-01-07 10:24 | P.PN ---
Subjective Progress Note Date: 01/07/24 Principal diagnosis: Left knee osteoarthritis Patient was seen at bedside this morning lying in; position with dressing present over left knee. Patient says he is looking forward to working with therapy later this morning. Patient says he has been up several times walking around the room using the walker. Patient says he has urinated several times since yesterday without issue. Patient says he has not had a bowel yet, however, patient says he has been passing gas. Patient says he does have a walker at home. Patient denies chest pain, fever, shortness of breath, nausea,, change in vision, loss of bowel/bladder control. Objective - Vital Signs Vital signs: Vital Signs Temp 97.5 F L 01/07/24 07:56 Pulse 82 01/07/24 07:56 Resp 19 01/07/24 07:56 BP 144/77 01/07/24 07:56 Pulse Ox 96 01/07/24 07:56 FiO2 Intake & Output 01/06/24 01/07/24 01/07/24 18:59 06:59 18:59 Intake Total 1351 Output Total 40 Balance 1311 Weight 116.2 kg Intake: IV 1351 Output: Estimated Blood Loss 40 Other: Voiding Method Toilet # Voids 1 3 - Exam Left knee: Incision is clean, dry, and intact. The dressing is in good condition. There is minimal soft tissue swelling and ecchymosis surrounding the medial and lateral aspects of the incision. Calf is soft, no tenderness with palpation. Plantar flexion, dorsiflexion, EHL, FHL are intact. Sensory exam to light touch throughout the extremity is intact, dorsal pedis pulses 2+. - Labs CBC & Chem 7: 01/07/24 04:41 Labs: Abnormal Lab Results - Last 24 Hours (Table) 01/07/24 Range/Units 04:41 RBC 4.17 L (4.40-5.60) X 10*6/uL Hgb 12.3 L (13.0-17.0) g/dL Hct 38.3 L (39.6-50.0) % Eosinophils # 0 L (0.04-0.35) X 10*3/uL Assessment and Plan Assessment: 1. Left knee osteoarthritis -Postop day 1 status post left total knee arthroplasty Plan: 1. Left knee osteoarthritis -left total knee arthroplasty performed yesterday, , for 01/06/2024. Patient stable at bedside this morning. Pending completion of PT/OT and performing stairs, discharge home today with health ser vices. Patient does have a walker for home. 2. Appreciate medical management 3. Pain management -[place] 4. DVT prophylaxis -resume Plavix at home 5. GI prophylaxis -senna 6. PT/OT -weightbearing as tolerated with walker 7. Encourage incentive spirometer use 8. Discharge planning - discharge home today with health services Time with Patient: Less than 30
--- NOTE | 2024-01-07 11:20 | P.PN ---
Progress Note - Text Progress Note Date: 01/07/24 Anesthesiology Postop day 1 status post total knee arthroplasty with adductor canal catheter. Patient doing well. VAS except faults out of 10. Gross strength intact in lower extremity. Afebrile. Denies alterations in sensorium. Catheter site intact. Heart regular rate Lungs nonlabored Abdomen nondistended Assessment: Postop day 1 status post total knee arthroplasty with adductor canal catheter Plan: 1.All questions answered. Maintain catheter 2 more days with patient removal at home. Instructions to be given at discharge. 2.This note was dictated using [employer] software. 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
[2024-01-07] MEDS: MULTIVITAMINS, THERA 1 EACH TAB PO SCH (12:05)
--- NOTE | 2024-01-07 22:53 | PN ---
PROGRESS NOTE DATE OF SERVICE: 01/07/2024 SUBJECTIVE: This 53-year-old gentleman was admitted with left total knee arthroplasty, improved significantly. No chest pain, no palpitations, no fever. OBJECTIVE: VITAL SIGNS: Pulse is 82, blood pressure 140/70, and respirations 19. HEENT: Conjunctivae normal. CARDIOVASCULAR: S1, S2. RESPIRATIONS: Diminished breath sounds at the bases. ABDOMEN: Soft. LEGS: Status post knee arthroplasty. LABORATORY DATA: Reviewed. ASSESSMENT: 1. Status post left total knee arthroplasty. 2. Past medical history of CHF. 3. Hypertension. 4. Hyperlipidemia. RECOMMENDATIONS: Recommended to continue current management, continue symptomatic treatment. Resume home medications. Follow up with primary physician in 2-3 weeks. Rest of the recommendations per Orthopedic surgery. MMODL / IJN: [id number] /
== END 2024-01-07 12:36 | disposition home health service (06) ==
LOC: OR 09:46 → 4SSUR 14:14 → OR 01-07 12:36
PROVIDERS: ATTEND Orthopaedic Surgery
DX: M17.12 Unilateral primary osteoarthritis, left knee (principal); G89.18 Other acute postprocedural pain; I11.0 Hypertensive heart disease with heart failure; I50.9 Heart failure, unspecified; J45.909 Unspecified asthma, uncomplicated; Z88.1 Allergy status to other antibiotic agents; E78.5 Hyperlipidemia, unspecified; K21.9 Gastro-esophageal reflux disease without esophagitis; G47.33 Obstructive sleep apnea (adult) (pediatric); F98.8 Other specified behavioral and emotional disorders with onset usually occurring in childhood and adolescence; I25.10 Atherosclerotic heart disease of native coronary artery without angina pectoris; Z87.891 Personal history of nicotine dependence; Z95.1 Presence of aortocoronary bypass graft; Z79.02 Long term (current) use of antithrombotics/antiplatelets; Z79.899 Other long term (current) drug therapy; Z79.82 Long term (current) use of aspirin; Z91.09 Other allergy status, other than to drugs and biological substances
CPT/HCPCS: 97162; 64999; 64448; 85025; 85610; 73560; 27447; C1776; C1713 ×2; C1751; J2250; J1100; J0690 ×3; J2405; J1650; J1170; J2795